=== PATIENT | female | born 1990 | race African-American/Black ===

== ENCOUNTER → 2019-05-26 | Outpatient (CLI) | payer BC ==
[2015-06-19 16:20] VITALS: BP 124/83
[~2019-05-26] MED LIST: INSU100V8 SQ; METF500T16 PO
--- NOTE | 2019-05-26 16:26 | KCIC ---
Examination: Ultrasound pelvis HISTORY: History of ovarian cysts on CT scan, pelvic pain COMPARISON: None available. FINDINGS: Uterus measures 8.4 x 5.6 x 5.7 cm. The endometrium is 2.9 mm in thickness. The right ovary measures 6.7 x 3.2 x 4.0 cm. There is a complex cystic structure or endometrioma or cystic mass measuring 4.1 x 3.5 x 3.6 cm identified in the right ovary. The left ovary measures 2.6 x 2.2 x 3.3 cm. A 1.2 cm follicle identified in the left ovary. There is a 2.1 cm left paraovarian cyst identified. Blood flow identified in the right and left ovaries. IMPRESSION: 1. Complex appearing cyst or endometrioma or cystic mass measuring 4.1 cm identified in the right ovary. Recommend MRI pelvis without and with IV contrast for better evaluation. 2. 2.1 cm left paraovarian cyst identified. Electronically signed by: Alon Wilkerson MD (05/26/2019 4:23 PM) [id number]
== END | disposition home or self-care (01) ==
LOC: KCIC US 14:41
PROVIDERS: ATTEND Obstetrics & Gynecology
DX: N83.292 Other ovarian cyst, left side (principal)
CPT/HCPCS: 76830; 76856

== ENCOUNTER → 2019-06-15 | Outpatient (CLI) | payer BC, OTHER ==
[2015-06-19 16:20] VITALS: BP 124/83
[~2019-06-15] MED LIST changes: +GADOTERATE 7.5 MMOL/15ML VIAL. IVP ONE
--- NOTE | 2019-06-15 18:12 | KCIC ---
INDICATION: Right ovarian mass COMPARISON: Ultrasound from May 26, 2019 TECHNIQUE: Multiplanar, multisequence MRI images are obtained through the pelvis with and without intravenous contrast. FINDINGS: Free fluid within the pelvis. Uterus is retroverted. There is some heterogeneity within the myometrium. Suspected T2 hypointense lesion anterior aspect of the myometrium measuring up to about 8 mm, small fibroid not excluded. Endometrial stripe does not appear thickened for the patient's age. At the partially because lower lumbar spine there is some degenerative changes including disc protrusions and facet hypertrophy. Urinary bladder is partially distended. Within the right adnexa there is an irregular partially enhancing masslike structure identified with some cystic regions within. This likely corresponds to the complex appearing lesion seen on recent ultrasound. Difficult to obtain an accurate measurement given that there are some loops of bowel abutting this structure but does not appear increased in size when compared to recent ultrasound. Maximum axial diameter is approximately 60 x 30 mm however this measurement is of questionable accuracy since this lesion abuts the uterus as well as loops of bowel coursing through the region. The distal sigmoid to rectal region is not very distended but the wall appears mildly prominent. IMPRESSION: * There is a mixed solid and cystic lesion within the right adnexa which likely corresponds to the complex cystic lesion seen on recent ultrasound. There is some regions of enhancement within suggestive of solid component. Again a complex cystic mass of the right ovary could have this appearance including benign causes as well as higher grade complex cystic neoplasms of the right ovary including ovarian epithelial tumors given the suspected solid component. Continued follow-up will be needed to ensure that this appropriately regresses in size. This could be followed with ultrasound in a few weeks for direct comparison with the prior exam from May 26, 2019 to ensure that there is appropriate regression in size of this mass and to ensure that there is not an increase in size of the solid component which would be more suggestive of a higher grade ovarian epithelial tumor. * Mild prominence of the wall of the distal sigmoid colon to rectal region. Could be from lack of distention unless the patient is having gastrointestinal symptoms to suggest real wall thickening from inflammation to the region. A distal colonic mass causing this finding would be unlikely in a patient of this age. Electronically signed by: Efren Ramirez MD (06/15/2019 6:09 PM) [facility] [place]
== END | disposition home or self-care (01) ==
LOC: KCIC MRI 14:43
PROVIDERS: ATTEND Nurse Practitioner Women's Health
DX: N83.291 Other ovarian cyst, right side (principal); N85.9 Noninflammatory disorder of uterus, unspecified
CPT/HCPCS: 72197; 82565; A9575

== ENCOUNTER → 2019-06-25 | Outpatient (CLI) | payer OTHER ==
[2015-06-19 16:20] VITALS: BP 124/83
[~2019-06-25] MED LIST changes: -GADOTERATE 7.5 MMOL/15ML VIAL. IVP ONE
--- NOTE | 2019-06-25 10:37 | KCIC ---
Pelvic ultrasound dated 06/25/2019. Comparison made to 06/15/2019. 05/26/2019. CLINICAL INDICATION: Follow-up ovarian cyst. FINDINGS: Transvaginal pelvic ultrasound was performed. Uterus measures 8.0 x 6.5 x 5.2 cm. No focal uterine mass. Endometrial complex is normal in thickness for age measuring 4 mm. Right ovary measures 2.9 x 2.7 x 2.1 cm. A vague hypoechoic focus at the right ovary measures about 1.2 cm in size that likely correlates with abnormality on recent MRI. On the prior MRI this measured about 4 cm maximum dimension. There is also a small simple cyst or dominant follicle the right ovary that measures 1 cm. Left ovary measures 2.4 x 1.7 x 2.1 cm. There are 2 small simple appearing cysts that could represent ovarian cyst or paraovarian cyst measuring up to 1.97 m maximum dimension. There is adequate color flow to both ovaries. No free fluid. IMPRESSION: 1. Interval decrease in size complex right ovarian cystic lesion, likely resolving cyst. 2. There are couple of small simple cystic foci on the left which could represent ovarian cysts or dominant follicles or small paraovarian cyst. Electronically signed by: Davon Ag MD (06/25/2019 10:35 AM) [facility]
== END | disposition home or self-care (01) ==
LOC: KCIC US 09:26
PROVIDERS: ATTEND Nurse Practitioner Women's Health
DX: Z03.89 Encounter for observation for other suspected diseases and conditions ruled out (principal)
CPT/HCPCS: 76830

== ENCOUNTER 2021-01-26 23:45 | Emergency (ER) | payer OTHER ==
[~2021-01-26] VITALS: Ht 172.7 cm; Wt 77.0 kg
[2021-01-27 00:33] VITALS: BP 119/85
--- NOTE | 2021-01-27 00:47 | PHYS DOC ---
Past Medical History Past Medical History: Diabetes-Type II Past Surgical History: No Surgical History Smoking Status: Never Smoker Alcohol Use: Heavy Drug Use: None General Adult EDM: Chief Complaint: FINGER INJURY HPI: HPI: Patient is a 30 year old female presents for evaluation of left ring finger injury. Patient was at work and had finger smashed/caught in a conveyor belt at work. On exam no deformities noted. Review of Systems: Review of Systems: Constitutional: Denies fever or chills. [] Eyes: Denies change in visual acuity. [] HENT: Denies nasal congestion or sore throat. [] Respiratory: Denies cough or shortness of breath. [] Cardiovascular: Denies chest pain or edema. [] GI: Denies abdominal pain, nausea, vomiting, bloody stools or diarrhea. [] : Denies dysuria. [] Musculoskeletal: Denies back pain or joint pain. [positive finger pain] Integument: Denies rash. [] Neurologic: Denies headache, focal weakness or sensory changes. [] Endocrine: Denies polyuria or polydipsia. [] Lymphatic: Denies swollen glands. [] Psychiatric: Denies depression or anxiety. [] Heart Score: C/O Chest Pain: N/A Risk Factors: Risk Factors: DM, Current or recent (<one month) smoker, HTN, HLP, family history of CAD, obesity. Risk Scores: Score 0 - 3: 2.5% MACE over next 6 weeks - Discharge Home Score 4 - 6: 20.3% MACE over next 6 weeks - Admit for Clinical Observation Score 7 - 10: 72.7% MACE over next 6 weeks - Early Invasive Strategies Allergies: Allergies: Allergies Coded Allergies Type Severity Reaction Last Updated Verified No Known Drug Allergies 05/12/14 No Physical Exam: PE: Constitutional: Well developed, well nourished, no acute distress, non-toxic appearance. [] HENT: Normocephalic, atraumatic, bilateral external ears normal, oropharynx moist, no oral exudates, nose normal. [] Eyes: PERRLA, EOMI, conjunctiva normal, no discharge. [] Neck: Normal range of motion, no tenderness, supple, no stridor. [] Cardiovascular:Heart rate regular rhythm, no murmur [] Lungs & Thorax: Bilateral breath sounds clear to auscultation [] Abdomen: Bowel sounds normal, soft, no tenderness, no masses, no pulsatile masses. [] Skin: Warm, dry, no erythema, no rash. [] Back: No tenderness, no CVA tenderness. [] Extremities: No tenderness, no cyanosis, no clubbing, ROM intact, no edema. [no deformities finger] Neurologic: Alert and oriented X 3, normal motor function, normal sensory function, no focal deficits noted. [] Psychologic: Affect normal, judgement normal, mood normal. [] Current Patient Data: Vital Signs: Vital Signs Date Time Temp Pulse Resp B/P (MAP) Pulse Ox O2 Delivery O2 Flow Rate FiO2 01/27/21 00:33 98.2 75 16 119/85 (96) 100 Room Air 98.2 EKG: EKG: [] Radiology/Procedures: Radiology/Procedures: [] Impression: wet read finger - no acute fracture Course & Med Decision Making: Course & Med Decision Making Pertinent Labs and Imaging studies reviewed. (See chart for details) [] Dragon Disclaimer: Dragsamantha Disclaimer: This electronic medical record was generated, in whole or in part, using a voice recognition dictation system. Departure Departure Impression: Primary Impression: Finger injury Disposition: HOME / SELF CARE / HOMELESS Condition: STABLE Referrals: JESSIE HEWITT MD (PCP) Patient Instructions: Crush Injury, Fingers or Toes PRESTON DENNIS DO Jan 27, 2021 00:46
--- NOTE | 2021-01-27 02:38 | RAD ---
EXAMINATION: Left hand/finger radiograph. VIEWS: 3 views COMPARISON: None INDICATION:30 years, Female, finger pain, injury FINDINGS: No acute fracture, dislocation or subluxation. No bone erosion or periosteal reaction. No significant soft tissue swelling. IMPRESSION: No acute osseous process. Electronically signed by: Duy Ayala DO (01/27/2021 2:35 AM) [facility]
== END 2021-01-27 01:15 | disposition home or self-care (01) ==
LOC: ER 23:45
DX: S69.92XA Unspecified injury of left wrist, hand and finger(s), initial encounter (principal); E11.9 Type 2 diabetes mellitus without complications; F10.20 Alcohol dependence, uncomplicated; Y90.9 Presence of alcohol in blood, level not specified; W23.0XXA Caught, crushed, jammed, or pinched between moving objects, initial encounter; Y93.89 Activity, other specified; Y92.89 Other specified places as the place of occurrence of the external cause; Y99.8 Other external cause status
CPT/HCPCS: 29130; 73140; 99283

== ENCOUNTER 2021-07-18 16:26 | Emergency (ER) | payer OTHER ==
[~2021-07-18] VITALS: Ht 172.7 cm; Wt 107.0 kg
[2021-07-18] MEDS ORDERED: IV NORMAL SALINE 1000ML BAG 1,000 ML IV ONE (17:30)
[2021-07-18] MEDS ORDERED: ONDANSETRON PF 4 MG/2 ML VIAL. IVP ONE (17:30)
[2021-07-18 17:43] LABS: BASO % 0 % (0-3); EOS # 0.2 x10^3/uL (0.0-0.7); EOS % 2 % (0-3); HEMATOCRIT 37.2 % (36.0-47.0); HEMOGLOBIN 11.9 g/dL (12.0-15.5); LYMPH # 2.8 x10^3/uL (1.0-4.8); LYMPH % 19 % (24-48); MEAN CORPUSCULAR HEMOGLOBIN 27 pg (25-35); MEAN CORPUSCULAR HGB CONC 32 g/dL (31-37); MEAN CORPUSCULAR VOLUME 86 fL (79-100); MONO # 0.8 x10^3/uL (0.0-1.1); MONO % 6 % (0-9); NEUT # 10.8 x10^3/uL (1.8-7.7); NEUT % 74 % (31-73); PLATELET COUNT 254 x10^3/uL (140-400); RED BLOOD COUNT 4.33 x10^6/uL (3.50-5.40); RED CELL DISTRIBUTION WIDTH 13.5 % (11.5-14.5); WHITE BLOOD COUNT 14.6 x10^3/uL (4.0-11.0)
[2021-07-18 17:53] LABS: AMPHETAMINE/METHAMPHETAMINE NEG (NEG); BARBITURATES NEG (NEG); BENZODIAZEPINES NEG (NEG); CANNABINOIDS NEG (NEG); COCAINE NEG (NEG); METHADONE NEG (NEG); OPIATES NEG (NEG); PHENCYCLIDINE NEG (NEG)
[2021-07-18 17:53] LABS: MAGNESIUM 1.7 mg/dL (1.8-2.4)
[2021-07-18 18:23] LABS: BILIRUBIN,URINE NEGATIVE (NEG); CLARITY,URINE CLEAR; COLOR,URINE YELLOW; NITRITE,URINE NEGATIVE (NEG); PH,URINE 5.5 (<5.0-8.0); PROTEIN,URINE 100 mg/dL (NEG-TRACE); UROBILINOGEN,URINE 0.2 mg/dL (0.2 mg/dL)
[2021-07-18 18:25] LABS: BACTERIA,URINE 0 /HPF (0-FEW); HYALINE CASTS, URINE MODERATE /HPF; RBC,URINE 0 /HPF (0-2)
[2021-07-18 18:59] LABS: CALCIUM 8.8 mg/dL (8.5-10.1); GFR 77.7
[2021-07-18 19:11] LABS: ALBUMIN 3.6 g/dL (3.4-5.0); ALBUMIN/GLOBULIN RATIO 0.8 (1.0-1.7); TOTAL BILIRUBIN 0.4 mg/dL (0.2-1.0)
--- NOTE | 2021-07-18 19:22 | PHYS DOC ---
Past Medical History Past Medical History: Diabetes-Type II (CIARA OLGUIN ) Past Surgical History: No Surgical History (CIARA OLGUIN ) Smoking Status: Never Smoker Alcohol Use: None Drug Use: None (CIARA OLGUIN PSYCHIATRIC NURSING AIDE) General Adult EDM: Chief Complaint: NAUSEA/VOMITING/DIARRHEA HPI: HPI: Patient is a 31 year old female with a history of diabetes type 2 presented today complaining of vomiting and diarrhea, symptoms of been going on since yesterday. Patient denies any fever, denies any hematemesis or melena. Reports mild generalized abdominal pain intermittently worse when vomiting currently no pain. Patient reports his sugars have been running between 200-300 since yesterday (CIARA OLGUIN ) Review of Systems: Review of Systems: constitutional: Denies fever or chills. [] Eyes: Denies change in visual acuity. [] HENT: Denies nasal congestion or sore throat. [] Respiratory: Denies cough or shortness of breath. [] Cardiovascular: Denies chest pain or edema. [] GI: Reports abdominal pain, vomiting and diarrhea : Denies dysuria. [] Musculoskeletal: Denies back pain or joint pain. [] Integument: Denies rash. [] Neurologic: Denies headache, focal weakness or sensory changes. [] Endocrine: Denies polyuria or polydipsia. [] Lymphatic: Denies swollen glands. [] Psychiatric: Denies depression or anxiety. [] (CIARA OLGUIN ) Heart Score: C/O Chest Pain: N/A Risk Factors: Risk Factors: DM, Current or recent (<one month) smoker, HTN, HLP, family history of CAD, obesity. Risk Scores: Score 0 - 3: 2.5% MACE over next 6 weeks - Discharge Home Score 4 - 6: 20.3% MACE over next 6 weeks - Admit for Clinical Observation Score 7 - 10: 72.7% MACE over next 6 weeks - Early Invasive Strategies (CIARA OLGUIN ) Current Medications: Current Medications Medications (Trade) Dose Ordered Sig/Irlanda Start Time Stop Time Status Last Admin Dose Admin Ondansetron HCl (Zofran) 4 mg 1X ONCE 07/18/21 17:30 07/18/21 17:31 DC 07/18/21 17:35 4 MG Sodium Chloride 1,000 ml @ 1,000 mls/hr 1X ONCE 07/18/21 17:30 07/18/21 18:29 DC 07/18/21 17:36 1,000 MLS/HR (CIARA OLGUIN PSYCHIATRIC NURSING AIDE) Allergies: Allergies: Allergies Coded Allergies Type Severity Reaction Last Updated Verified No Known Drug Allergies 07/18/21 No (CIARA OLGUIN PSYCHIATRIC NURSING AIDE) Physical Exam: PE: Constitutional: Well developed, well nourished, no acute distress, non-toxic appearance. [] HENT: Normocephalic, atraumatic, bilateral external ears normal, oropharynx moist, no oral exudates, nose normal. [] Eyes: PERRLA, EOMI, conjunctiva normal, no discharge. [] Neck: Normal range of motion, no tenderness, supple, no stridor. [] Cardiovascular:Heart rate regular rhythm, no murmur [] Lungs & Thorax: Bilateral breath sounds clear to auscultation [] Abdomen: Bowel sounds normal, soft, no tenderness, no masses, no pulsatile masses. [] Skin: Warm, dry, no erythema, no rash. [] Back: No tenderness, no CVA tenderness. [] Extremities: No tenderness, no cyanosis, no clubbing, ROM intact, no edema. [] Neurologic: Alert and oriented X 3, normal motor function, normal sensory function, no focal deficits noted. [] Psychologic: Affect normal, judgement normal, mood normal. [] (CIARA OLGUIN PSYCHIATRIC NURSING AIDE) Current Patient Data: Labs: Laboratory Tests Test 07/18/21 16:54 07/18/21 16:59 07/18/21 17:01 07/18/21 17:31 Urine Opiates Screen Neg (NEG) Urine Methadone Screen Neg (NEG) Urine Barbiturates Neg (NEG) Urine Phencyclidine Screen Neg (NEG) Urine Amphetamine/Methamphetamine Neg (NEG) Urine Benzodiazepines Screen Neg (NEG) Urine Cocaine Screen Neg (NEG) Urine Cannabinoids Screen Neg (NEG) Urine Ethyl Alcohol Neg (NEG) Urine Collection Type Unknown Urine Color Yellow Urine Clarity Clear Urine pH 5.5 (<5.0-8.0) Urine Specific [place] 1.020 (1.000-1.030) Urine Protein 100 mg/dL (NEG-TRACE) Urine Glucose (UA) Negative mg/dL (NEG) Urine Ketones (Stick) Negative mg/dL (NEG) Urine Blood Negative (NEG) Urine Nitrite Negative (NEG) Urine Bilirubin Negative (NEG) Urine Urobilinogen Dipstick 0.2 mg/dL (0.2 mg/dL) Urine Leukocyte Esterase Negative (NEG) Urine RBC 0 /HPF (0-2) Urine WBC 1-4 /HPF (0-4) Urine Squamous Epithelial Cells Mod /LPF Urine Bacteria 0 /HPF (0-FEW) Urine Hyaline Casts Moderate /HPF Urine Mucus Mod /LPF POC Urine HCG, Qualitative Hcg negative (Negative) White Blood Count 14.6 x10^3/uL (4.0-11.0) H Red Blood Count 4.33 x10^6/uL (3.50-5.40) Hemoglobin 11.9 g/dL (12.0-15.5) L Hematocrit 37.2 % (36.0-47.0) Mean Corpuscular Volume 86 fL (79-100) Mean Corpuscular Hemoglobin 27 pg (25-35) Mean Corpuscular Hemoglobin Concent 32 g/dL (31-37) Red Cell Distribution Width 13.5 % (11.5-14.5) Platelet Count 254 x10^3/uL (140-400) Neutrophils (%) (Auto) 74 % (31-73) H Lymphocytes (%) (Auto) 19 % (24-48) L Monocytes (%) (Auto) 6 % (0-9) Eosinophils (%) (Auto) 2 % (0-3) Basophils (%) (Auto) 0 % (0-3) Neutrophils # (Auto) 10.8 x10^3/uL (1.8-7.7) H Lymphocytes # (Auto) 2.8 x10^3/uL (1.0-4.8) Monocytes # (Auto) 0.8 x10^3/uL (0.0-1.1) Eosinophils # (Auto) 0.2 x10^3/uL (0.0-0.7) Basophils # (Auto) 0.0 x10^3/uL (0.0-0.2) Sodium Level 131 mmol/L (136-145) L Potassium Level 4.0 mmol/L (3.5-5.1) Chloride Level 95 mmol/L (98-107) L Carbon Dioxide Level 24 mmol/L (21-32) Anion Gap 12 (6-14) Blood Urea Nitrogen 20 mg/dL (7-20) Creatinine 1.0 mg/dL (0.6-1.0) Estimated GFR (Cockcroft-Gault) 77.7 BUN/Creatinine Ratio 20 (6-20) Glucose Level 201 mg/dL (70-99) H Calcium Level 8.8 mg/dL (8.5-10.1) Magnesium Level 1.7 mg/dL (1.8-2.4) L Total Bilirubin 0.4 mg/dL (0.2-1.0) Aspartate Amino Transferase (AST) 12 U/L (15-37) L Alanine Aminotransferase (ALT) 22 U/L (14-59) Alkaline Phosphatase 68 U/L (46-116) Total Protein 8.0 g/dL (6.4-8.2) Albumin 3.6 g/dL (3.4-5.0) Albumin/Globulin Ratio 0.8 (1.0-1.7) L Lipase 173 U/L (73-393) Ethyl Alcohol Level < 10 mg/dL (0-10) Laboratory Tests 07/18/21 17:31 Laboratory Tests 07/18/21 17:31 Vital Signs: Vital Signs Date Time Temp Pulse Resp B/P (MAP) Pulse Ox O2 Delivery O2 Flow Rate FiO2 07/18/21 18:30 71 16 121/78 (92) 100 07/18/21 16:40 98.3 98.3 (CIARA OLGUIN APRN) EKG: EKG: [] (CIARA OLGUIN APRN) Radiology/Procedures: Radiology/Procedures: []PROCEDURE: CT ABD PELV W/ IV CONTRST ONLY INDICATION: Reason: abd pain, vomiting / Spl. Instructions: [id number] [phone] / History: COMPARISON: None. TECHNIQUE: Axial CT images were obtained through the abdomen and pelvis with intravenous contrast. One or more of the following individualized dose reduction techniques were utilized for this examination: 1. Automated exposure control; 2. Adjustment of the mA and/or kV according to patient size; 3. Use of iterative reconstruction technique. FINDINGS: Vascular: No abdominal aortic aneurysm. Hepatobiliary: Liver is low density. Nonspecific but can be seen with fatty infiltration. Small fat-containing umbilical hernia. Pancreas: No peripancreatic edema. Spleen: Spleen unremarkable. Renal/Bladder: Urinary bladder is decompressed. No hydronephrosis. Gastrointestinal: No periappendiceal inflammatory changes. No dilated loops of bowel to suggest obstruction. IMPRESSION: * No evidence of bowel obstruction or appendicitis. Electronically signed by: Clint Cleary MD (07/18/2021 8:12 PM) [id number] DICTATED and SIGNED BY: CLINT CLEARY MD DATE: 07/18/[id number] 0 (CIARA OLGUIN APRN) Course & Med Decision Making: Course & Med Decision Making Pertinent Labs and Imaging studies reviewed. (See chart for details) This is a 31-year-old female presented to the ED today complaining of vomiting, diarrhea and abdominal pain since yesterday. CBC with a WBC of 14.6, CMP with glucose of 201, anion gap is normal. CO2 is normal, BUN and creatinine are normal UA negative for infection CT of the abdomen and pelvis is negative for any acute findings. Patient was given IV fluids, nausea medicines. Discharged home. Follow-up with PCP in 1 to 2 weeks (CIARA OLGUIN APRN) Course & Med Decision Making Patients Care and treatment plan provided by ER Nurse Practitioner. I was available for consult. Patient's chart reviewed. (PRESTON DENNIS DO) Nathan Disclaimer: Nathan Disclaimer: This electronic medical record was generated, in whole or in part, using a voice recognition dictation system. (CIARA OLGUIN APRN) Departure Departure Impression: Primary Impression: Vomiting Qualified Codes: R11.10 - Vomiting, unspecified Additional Impressions: Diarrhea Qualified Codes: R19.7 - Diarrhea, unspecified Hyperglycemia Disposition: HOME / SELF CARE / HOMELESS Condition: STABLE Referrals: JESSIE HEWITT MD (PCP) Patient Instructions: Diarrhea, Et[place]-on-Uuxp, Nausea and Vomiting, [id number] Additional Instructions: You were seen in the emergency room for vomiting, diarrhea, abdominal pain. Your work-up in the emergency room is negative for any acute findings. Rest, push fluids, maintain good hand hygiene, follow-up with your doctor in 1 week Scripts Ondansetron (ONDANSETRON ODT) 4 Mg Tab.rapdis 1 TAB PO PRN Q6-8HRS, #16 TAB Prov: CIARA OLGUIN APRN 07/18/21 CIARA OLGUIN APRN Jul 18, 2021 19:22 PRESTON DENNIS DO Jul 19, 2021 03:38
[2021-07-18] MEDS ORDERED: IOHEXOL 300 MG/ML 100ML VIAL. IV ONE (19:30)
--- NOTE | 2021-07-18 20:15 | RAD ---
INDICATION: Reason: abd pain, vomiting / Spl. Instructions: [id number] [phone] / History: COMPARISON: None. TECHNIQUE: Axial CT images were obtained through the abdomen and pelvis with intravenous contrast. One or more of the following individualized dose reduction techniques were utilized for this examinat ion: 1. Automated exposure control; 2. Adjustment of the mA and/or kV according to patient size; 3 . Use of iterative reconstruction technique. FINDINGS: Vascular: No abdominal aortic aneurysm. Hepatobiliary: Liver is low density. Nonspecific but can be seen with fatty infiltration. Small fat-containing umbilical hernia. Pancreas: No peripancreatic edema. Spleen: Spleen unremarkable. Renal/Bladder: Urinary bladder is decompressed. No hydronephrosis. Gastrointestinal: No periappendiceal inflammatory changes. No dilated loops of bowel to suggest obstr uction. IMPRESSION: * No evidence of bowel obstruction or appendicitis. Electronically signed by: Efren Ramirez MD (07/18/2021 8:12 PM) [id number]
[2021-07-18] MEDS ORDERED: ONDA4TAB12 PO (20:21)
[2021-07-18 20:54] VITALS: BP 119/69
== END 2021-07-18 20:54 | disposition home or self-care (01) ==
LOC: ER 16:26
DX: R11.2 Nausea with vomiting, unspecified (principal); R19.7 Diarrhea, unspecified; E11.65 Type 2 diabetes mellitus with hyperglycemia; R10.84 Generalized abdominal pain
CPT/HCPCS: 36415; 74177; 80053; 80307; 81001; 81025; 83690; 83735; 85025; 96361; 96374; 99285; G0480; J2405; J7030; Q9967